=== PATIENT | female | born 1955 | race Caucasian/White ===

== ENCOUNTER 2020-03-31 07:44 | Outpatient (CLI) | payer OTHER, SELFPAY ==
--- NOTE | ~2020-03-31 | MM_ITS ---
EXAMINATION: MM screening [facility] BI w umang HISTORY: Screening mammogram TECHNIQUE: Craniocaudal and mediolateral oblique 3-D tomosynthesis images were obtained and synthetic 2-D images were generated. CAD analysis was submitted and interpreted. COMPARISON: 01/05/2017 bilateral complete breast ultrasound 12/27/2016 bilateral digital screening mammogram bilateral digital screening mammogram BREAST PARENCHYMAL COMPOSITION: The breasts are heterogeneously dense, which may obscure small masses . FINDINGS: Again noted is a biopsy marker in the posterior upper mid left breast; history of prior ryan ign left breast biopsy. There is bilateral asymmetry. Additional bilateral diagnostic compression views are recommended.. Indeterminate subtle grouped microcalcifications are noted in the posterior upper inner quadrant of t he left breast. Diagnostic left magnification mammographic views are recommended. 10 mm circumscribed mass is noted centrally in the left breast (MLO Tomosynthesis image 43/77). IMPRESSION: 1. Bilateral asymmetry and left-sided microcalcifications 2. Bilateral diagnostic mammography is recommended BI-RADS Category 0: Incomplete: Needs additional imaging evaluation. Reviewed, dictated and finalized at location A. X FOAM WORKER
--- NOTE | ~2020-03-31 | DEXA_ITS ---
Bone Density Report Name: Janine Mejia Age: 64 Sex: Female Ethnicity: White Date of : 1955 Indication: postmenopausal; height loss; Referring Provider: Alla Bourne Study: Bone densitometry was performed. Exam Date: March 31, 2020 Accession number: [id number] Bone Density: Region BMD T-score Z-score Classification AP Spine (L1-L4) 0.750 -2.7 -1.0 Osteoporosis Femoral Neck (Left) 0.636 -1.9 -0.4 Osteopenia Total Hip (Left) 0.730 -1.7 -0.5 Osteopenia Total Hip Bilateral Avg 0.746 -1.6 -0.4 Osteopenia Femoral Neck (Right) 0.635 -1.9 -0.4 Osteopenia Total Hip (Right) 0.761 -1.5 -0.3 Osteopenia World Health Organization criteria for BMD impression classify patients as: Normal (T-score at or above -1.0), Osteopenia (T-score between -1.0 and -2.5), or Osteoporosis (T-score at or below -2.5). 10-year Fracture Risk: FRAX not reported because: Some T-score for Spine Total or Hip Total or Femoral Neck at or below -2.5 Treated for osteoporosis Clinical Information Provided by Patient: Is being treated for osteoporosis Has used the following medications: Fosamax (i.e. alendronate), Vitamin D Patient maximum height was 64 Menopause Age: 50 Onset of menses at age 15 Number of children 1 Impression: The patient has osteoporosis, based on the Total Spine T-score. Discussion: It is important to ask patients whether they are taking their medications and to encourage continued and appropriate compliance with their osteoporosis therapies to reduce fracture risk. It is also important to review their risk factors and encourage appropriate calcium and vitamin D intakes, exercise, fall prevention and other lifestyle measures. Follow-Up: Consider a repeat BMD and Vertebral Fracture Assessment (VFA) exam in 2 years or sooner if medically necessary, to reassess this patient's status. Reported by: ANTHONY on 03/31/2020 8:16:00 AM. Reviewed, dictated and finalized at location AGina LINDSEY
== END 2020-03-31 07:45 | disposition home or self-care (01) ==
LOC: ANHIMG 07:50
PROVIDERS: PCP Family Medicine; Visit Provider Obstetrics & Gynecology
DX: Z12.31 Encounter for screening mammogram for malignant neoplasm of breast (principal); Z13.820 Encounter for screening for osteoporosis; Z78.0 Asymptomatic menopausal state; R92.8 Other abnormal and inconclusive findings on diagnostic imaging of breast; M81.0 Age-related osteoporosis without current pathological fracture; M85.852 Other specified disorders of bone density and structure, left thigh; M85.851 Other specified disorders of bone density and structure, right thigh
CPT/HCPCS: 77063; 77067; 77080

== ENCOUNTER 2020-05-05 11:21 | Outpatient (CLI) | payer OTHER, SELFPAY ==
--- NOTE | ~2020-05-05 | MM_ITS ---
EXAMINATION: MM diagnostic ty BI w umang HISTORY: Follow-up bilateral calcifications and breast asymmetries. TECHNIQUE: Additional 3-D tomosynthesis images of the breasts were performed and synthetic 2-D images were generated. CAD analysis was submitted and interpreted. COMPARISON: Comparison to multiple prior studies sequentially, with oldest reviewed study dated 06/22. BREAST PARENCHYMAL COMPOSITION: The breasts are heterogenously dense, which may obscure small masses. FINDINGS: There are nonspecific bilateral clustered calcifications upper aspect of the both breasts. There are bilateral breast asymmetries which are persistent, although no discrete mass or architectur al distortion is identified. IMPRESSION: 1. Bilateral breast asymmetries obscured by dense fibroglandular tissue. Bilateral complete breast ul trasound recommended. 2. Bilateral clustered nonspecific calcifications are likely benign. Six-month follow-up diagnostic b ilateral mammogram recommended. BI-RADS Category 0: Incomplete: Needs additional imaging evaluation. Reviewed, dictated and finalized at location A. ICAL ADMINISTRATIVE ASSISTANT IMPRESSION: 1. Bilateral breast asymmetries obscured by dense fibroglandular tissue. Bilate ral complete breast ultrasound recommended. 2. Bilateral clustered nonspecific calcifications are likely benign. Six-month follow-up diagnostic bilateral mammogram recommended. BI-RADS Category 0: Incomplete: Needs additional imaging evaluation.
--- NOTE | ~2020-05-05 | US_ITS ---
US breast BI complete 05/05/2020 12:46 Indication: Follow-up bilateral breast asymmetries Procedure: High-resolution complete bilateral breast ultrasound Comparison: 01/05/2017 Findings: There are multiple simple and complicated cysts of both breasts. There are no suspicious va scular masses in either breast. At 9:00, 2 cm from the nipple there are small hypoechoic masses adjac ent to one another measuring up to 4 mm, likely benign. At 4:00, 4 cm from the nipple there is a oval hypoechoic mass measuring 6 mm which is unchanged from prior study, consistent with a benign mass, likely complicated cyst or fibroadenoma. At 11:00, 1 cm f rom the nipple there is a stable hypoechoic mass measuring 1 cm maximum dimension, slightly decreased in size compared with prior examination allowing for technique, likely benign. Impression: 1: Probable benign left breast masses. BI-RADS CATEGORY 3-PROBABLY BENIGN FINDING RECOMMENDATION: Six-month follow-up diagnostic bilateral mammogram and left breast ultrasound recomme nded. Reviewed, dictated and finalized at location A. HOUSE LOGISTICS MANAGER Impression: 1: Probable benign left breast masses. BI-RADS CATEGORY 3-PROBABLY BENIGN FINDING RECOMMENDATION: Six-month follow-up diagnostic bilateral mammogram and left stacie ast ultrasound recommended.
== END 2020-05-05 11:22 | disposition home or self-care (01) ==
LOC: ANHIMG 11:23
PROVIDERS: PCP Physician Assistant; Visit Provider Obstetrics & Gynecology
DX: R92.8 Other abnormal and inconclusive findings on diagnostic imaging of breast (principal)
CPT/HCPCS: 76641; 77062; 77066; G0279

== ENCOUNTER → 2021-04-13 07:52 | Outpatient (CLI) | payer OTHER, SELFPAY ==
--- NOTE | ~2021-04-13 | MMUS_ITS ---
EXAMINATION: MM diagnostic ty BI w umang, US breast LT complete HISTORY: Overdue follow-up for probably benign bilateral breast calcifications and left breast masses TECHNIQUE: Craniocaudal, mediolateral, and mediolateral oblique 3-D tomosynthesis images of the dalial ts were performed and synthetic 2-D images were generated. CAD analysis was submitted and interpreted . High resolution limited left breast ultrasound was performed. COMPARISON: 05/05/2020, 03/31/2020, 12/27/2016 BREAST PARENCHYMAL COMPOSITION: The breasts are extremely dense, which lowers the sensitivity of mamm ography. FINDINGS: MAMMOGRAPHIC FINDINGS: Left breast: There is a stable 10 mm obscured low density mass middle third of the inner breast at th e 9:00 location 4.5 cm from the nipple. There are also stable appearing calcifications of the posteri or third of the inner breast. Right breast: Grouped calcifications in the posterior third upper outer quadrant of the breast appear stable and somewhat dystrophic in morphology. ULTRASOUND: An 8 mm round, circumscribed, hypoechoic mass with no posterior features or internal vascularity at t he 12:00 location 2 cm from the nipple demonstrates slight decrease in size. A 3 mm mass with similar sonographic features at the 1:00 location 4 cm from the nipple is stable. IMPRESSION: 1. Bilateral breast calcifications and sonographically detected left breast mass at the 1:00 location without significant change since the prior examination. 2. Given one year of interval stability, recommend 12 month followup bilateral diagnostic mammogram a nd left breast ultrasound. BI-RADS category 3, probably benign findings. Reviewed, dictated and finalized at location A. UTATOR OPERATOR IMPRESSION: 1. Bilateral breast calcifications and sonographically detected left breast mas s at the 1:00 location without significant change since the prior examination. 2. Given one year of interval stability, recommend 12 month followup bilateral diagnostic mammogram and left breast ultrasound. BI-RADS category 3, probably benign findings.
== END ==
PROVIDERS: PCP Physician Assistant; Visit Provider Obstetrics & Gynecology
DX: R92.8 Other abnormal and inconclusive findings on diagnostic imaging of breast (principal)
CPT/HCPCS: 76641; 77062; 77066; G0279

== ENCOUNTER 2022-01-12 14:51 | Outpatient (CLI) | payer OTHER, SELFPAY ==
[2022-01-12 15:22] LABS: Appearance Urine Clear (Clear); Bilirubin Urine Negative (Negative); Blood Urine Trace-intact (Negative); Color Urine Yellow (Yellow); Glucose Urine UA Negative (Negative); Ketones Urine Negative (Negative); Leukocyte Esterase Ur 2+ LEU/UL (NEGATIVE); Nitrate Urine Negative (Negative); Protein Urine Negative (Negative); Specific Grav Ur 1.015 (1.001-1.035); Urobilinogen Urine 0.2 mg/dL (<2.0)
[2022-01-12 15:26] LABS: Bacteria Urine Trace /hpf; Mucus Urine Rare /lpf; Squamous Epithelial Cell Urine Rare /hpf (Few)
[2022-01-12 15:35] LABS: Add Urine Microscopic? YES
== END 2022-01-12 14:52 | disposition home or self-care (01) ==
PROVIDERS: PCP Physician Assistant; Visit Provider Physician Assistant
DX: R10.9 Unspecified abdominal pain (principal)
CPT/HCPCS: 81001; 87086

== ENCOUNTER → 2022-05-31 07:40 | Outpatient (CLI) | payer OTHER, SELFPAY ==
--- NOTE | ~2022-05-31 | MMUS_ITS ---
EXAMINATION: MM diagnostic ty BI w umang, US breast BI complete HISTORY: 12 month follow-up of bilateral breast calcifications and sonographically detected left 1:00 breast mass TECHNIQUE: ML, MLO and CC 3-D tomosynthesis images of both breasts were performed and synthetic 2-D i mages were generated. Magnification views of both breasts. CAD analysis was submitted and interpreted . High resolution complete bilateral breast ultrasound examination including all 4 quadrants and suba reolar areas was performed. COMPARISON: 04/13/2021 bilateral diagnostic mammogram and complete left breast ultrasound examination 05/05/2020 bilateral diagnostic mammogram and complete bilateral breast ultrasound examination BREAST PARENCHYMAL COMPOSITION: The breasts are heterogeneously dense, which may obscure small masses . FINDINGS: MAMMOGRAPHIC FINDINGS: There is a biopsy marker on the left. History of prior benign left breast biopsy. There is a circumscribed 9 mm mass in the inner aspect of the upper inner quadrant of the left breast approximately 4.2 cm deep to the nipple The heterogeneously dense stroma may obscure additional masses. Occasional bilateral benign calcifications are noted. No architectural distortion, skin thickening or retraction is detected. ULTRASOUND: Right breast: 2:00 subareolar area: 3 x 2.2 mm circumscribed hypoechoic lesion without internal vascularity or post erior shadowing 8:00 4 cm from nipple: There is a small focal area of shadowing without discrete mass; ultrasound-nancy ded biopsy should be considered 10:00 5 cm from nipple: 3.2 x 4.3 mm circumscribed hypoechoic area without internal vascularity or po sterior shadowing Left breast: 12:00 subareolar area: There is a non circumscribed approximately 6 x 9 x 7 mm hypoechoic area with p osterior shadowing. Ultrasound-guided biopsy is recommended. IMPRESSION: 1. Left breast 12:00 non circumscribed approximately 9 mm hypoechoic area with posterior shadowing; u ltrasound-guided biopsy is recommended 2. Right breast 8:00 focal shadowing; ultrasound-guided biopsy should be considered BI-RADS category 4, suspicious findings. Dr. Muhammad telephoned the report and ultrasound guided biopsy recommendations on May 31, 2022 at 0 945 hours to Cata Machine Fastener. Reviewed, dictated and finalized at location A. SIT BUS DRIVER IMPRESSION: 1. Left breast 12:00 non circumscribed approximately 9 mm hypoechoic area with posterior shadowing; ultrasound-guided biopsy is recommended 2. Right breast 8:00 focal shadowing; ultrasound-guided biopsy should be consid ered BI-RADS category 4, suspicious findings. Dr. Muhammad telephoned the report and ultrasound guided biopsy recommendations on May 31, 2022 at 0945 hours to Mora Ivy.
== END ==
PROVIDERS: PCP Physician Assistant; Visit Provider Obstetrics & Gynecology
DX: N63.20 Unspecified lump in the left breast, unspecified quadrant (principal); R92.8 Other abnormal and inconclusive findings on diagnostic imaging of breast
CPT/HCPCS: 76641; 77062; 77066; G0279

== ENCOUNTER 2023-10-17 11:17 | Outpatient (CLI) | payer OTHER, SELFPAY ==
--- NOTE | ~2023-10-17 | MM_ITS ---
EXAMINATION: MM screening ty BI w umang HISTORY: Screening TECHNIQUE: Craniocaudal and mediolateral oblique 3-D tomosynthesis images were obtained and synthetic 2-D images were generated. CAD analysis was submitted and interpreted. COMPARISON: Comparison to multiple prior studies sequentially, with oldest reviewed study dated 07/29. BREAST PARENCHYMAL COMPOSITION: Dense: The breasts are heterogeneously dense, which may obscure small masses FINDINGS: There are asymmetries centered in the upper outer quadrant of the left breast with associat ed tissue markers. The right breast is stable without evidence for malignancy. IMPRESSION: 1. Left breast asymmetries, upper outer quadrant. 2. Additional mammographic views and possible breast ultrasound are recommended. BI-RADS Category 0: Incomplete: Needs additional imaging evaluation. Reviewed, dictated and finalized at location B. IMPRESSION: 1. Left breast asymmetries, upper outer quadrant. 2. Additional mammographic views and possible breast ultrasound are recommended . BI-RADS Category 0: Incomplete: Needs additional imaging evaluation.
== END 2023-10-17 11:18 ==
LOC: MICIMG 11:18
PROVIDERS: PCP Physician Assistant; Visit Provider Obstetrics & Gynecology
DX: Z12.31 Encounter for screening mammogram for malignant neoplasm of breast (principal); R92.8 Other abnormal and inconclusive findings on diagnostic imaging of breast
CPT/HCPCS: 77063; 77067

== ENCOUNTER 2023-11-15 08:20 | Emergency (ER) | payer OTHER, SELFPAY ==
--- NOTE | 2023-11-15 08:33 | ED.EAR ---
HPI - Ear Problem General Chief complaint: Ear Stated complaint: RT Ear Pain Time Seen by Provider: 11/15/23 08:46 Source: patient Mode of arrival: ambulatory Limitations: no limitations History of Present Illness HPI Narrative: 68-year-old female presented for complaint of right ear pain for 3 days. Pain is described as sharp and throbbing, improves with ibuprofen. Worse at bedtime when laying down. Denies decreased hearing, ear drainage, dizziness, tinnitus, nausea vomiting, nasal congestion, fevers or chills. MD Complaint: ear pain Related Data Home Medications Medication Instructions Recorded Confirmed aspirin 81 mg tablet,delayed 81 mg PO DAILY 04/21/20 11/15/23 release (Adult Aspirin Regimen) calcium carbonate 600 mg PO DAILY 04/21/20 11/15/23 cholecalciferol (vitamin D3) 25 25 mcg PO DAILY 04/27/21 11/15/23 mcg (1,000 unit) capsule vitamin E (dl, acetate) 180 mg 180 mg PO DAILY 04/27/21 11/15/23 (400 unit) capsule Allergies Allergy/AdvReac Type Severity Reaction Status Date / Time No Known Allergies Allergy Verified 05/23/23 09:20 Review of Systems Review of Systems: CONSTITUTIONAL: Denies malaise, chills, or fever. EYES: Denies visual changes, redness, or discharge. ENT: Denies rhinorrhea, congestion, sinus pain, and sore throat. Reports ear pain CARDIOVASCULAR: Denies chest pain, palpitations, or edema. RESPIRATORY: Denies cough or dyspnea. GASTROINTESTINAL: Denies abdominal pain, nausea, vomiting, diarrhea SKIN: Denies rash or itching. MUSCULOSKELETAL: Denies myalgia. NEUROLOGIC: Denies headache. All systems reviewed & are unremarkable except as noted in HPI and below PMFSH Past Medical History Medical History Abnormal breast biopsy Cataract (lens) fragments in eye following cataract surgery, right eye High cholesterol Left breast mass Spontaneous Tubal Surgical History Surgical History H/O breast biopsy (07/12/22) left breast biopsy Benign History of gynecologic surgery d&c - miscarriage History of gynecologic surgery endometria [id number]-P&C-benign History of tubal ligation Family History Family History Father Heart disease Mother Aneurysm of gastric artery Diabetes mellitus Heart disease Sibling Heart disease Social History Social History Smoking status: Never smoker Alcohol intake: never Substance use: never Substance use type: does not use Lack of Transportation: No Lack of Food: Never True Current Housing: I Have Housing Concerned About Future Housing: No Difficulty Paying Gas/Electric Bills: No Difficulty Paying for Meds: No Currently Unemployed: No Education: High School Diploma/GED Difficulty w/ Childcare or Family Care: No Living arrangements: other Additional living arrangements comments: Occupation/Education: occupation 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 There is no relevant family history pertinent to the presenting complaint Exam Narrative: GENERAL: Well-appearing ENT: Nares clear. Mucous membranes moist. TMs pearly schumacher with dull light reflex bilaterally, right TM with cloudy effusion; canal not erythematous, no drainage; no tragal tenderness. Oropharynx not erythematous without lesions. NECK: Supple. No lymphadenopathy CHEST: Clear to auscultation, breath sounds equal. No wheezing, rhonchi, rales, or stridor. No respiratory distress, speaks in full sentences. HEAR
[2023-11-15 08:41] VITALS: BP 124/50; PULSE 61; RESP 16; TEMP 36.7; O2SAT 99
[2023-11-15 08:45] VITALS: BP 124/50; PULSE 61; RESP 16; TEMP 36.7; O2SAT 99
== END 2023-11-15 08:58 | disposition home or self-care (01) ==
PROVIDERS: Emergency Provider Nurse Practitioner Family; PCP Internal Medicine
DX: H66.91 Otitis media, unspecified, right ear (principal); E78.00 Pure hypercholesterolemia, unspecified; Z79.82 Long term (current) use of aspirin
CPT/HCPCS: 99213; G0463

== ENCOUNTER 2024-04-10 07:55 | Outpatient (CLI) | payer OTHER, SELFPAY ==
--- NOTE | ~2024-04-10 | DEXA_ITS ---
Bone Density Report Name: ABE CHÁVEZ Age: 68 Sex: Female Ethnicity: White Date of : 1955 Indication: postmenopausal; screening for osteoporosis; height loss; Referring Provider: LAINA ARNOLD Study: Bone densitometry was performed. Exam Date: April 10, 2024 Accession number: [id number] Bone Density: Region BMD T-score Z-score Classification AP Spine(L1-L4) 0.844 -1.8 0.2 Osteopenia Femoral Neck (Left) 0.625 -2.0 -0.3 Osteopenia Total Hip (Left) 0.815 -1.0 0.4 Normal Femoral Neck (Right) 0.687 -1.5 0.3 Osteopenia Total Hip (Right) 0.816 -1.0 0.4 Normal Total Hip Mean 0.815 -1.0 0.4 Normal World Health Organization criteria for BMD impression classify patients as: Normal (T-score at or above -1.0), Osteopenia (T-score between -1.0 and -2.5), or Osteoporosis (T-score at or below -2.5). 10-year Fracture Risk: FRAX not reported because: Treated for osteoporosis Clinical Information Provided by Patient: Is being treated for osteoporosis Has used the following medications: Boniva (i.e. ibandronate), Vitamin D, Calcium Patient maximum height was 63 Menopause Age: 50 No regular weight bearing exercise Drinks caffeinated beverages Onset of menses at age 14 Number of children 1 Impression: The patient has low bone mass, based on the Left Femoral Neck T-score. Discussion: It is important to ask patients whether they are taking their medications and to encourage continued and appropriate compliance with their osteoporosis therapies to reduce fracture risk. It is also important to review their risk factors and encourage appropriate calcium and vitamin D intakes, exercise, fall prevention and other lifestyle measures. Follow-Up: Consider a repeat BMD and Vertebral Fracture Assessment (VFA) exam in 2 years or sooner if medically necessary, to reassess this patient's status. Reported by: JACQUI on 04/10/2024 8:28:00 AM. Reviewed, dictated and finalized at location AGina LINDSEY
== END 2024-04-10 07:56 | disposition home or self-care (01) ==
LOC: ANHIMG 07:59
PROVIDERS: PCP Internal Medicine; Visit Provider Obstetrics & Gynecology
DX: M81.0 Age-related osteoporosis without current pathological fracture (principal); M85.89 Other specified disorders of bone density and structure, multiple sites; Z13.820 Encounter for screening for osteoporosis
CPT/HCPCS: 77080

== ENCOUNTER 2024-04-23 07:41 | Outpatient (CLI) | payer BC, SELFPAY ==
--- NOTE | ~2024-04-23 | MM_ITS ---
EXAMINATION: MM diagnostic ty LT w umang HISTORY: Six-month follow-up left breast, prior biopsy TECHNIQUE: 3-D tomosynthesis images of the left breast were performed and synthetic 2-D images were g enerated. CAD analysis was submitted and interpreted. COMPARISON: 10/17/2023, 01/03/2023, 07/12/2022 BREAST PARENCHYMAL COMPOSITION:Dense: The breasts are heterogeneously dense, which may obscure small masses. FINDINGS: Parenchymal pattern of the left breast is unchanged. Stable biopsy markers. Stable central left breast masses. No new mass or new distortion evident. No suspicious microcalcification. IMPRESSION: No mammographic evidence for malignancy. Stable examination as compared to prior exam. BI-RADS Category 2: Benign finding(s). Reviewed, dictated and finalized at location . NG MACHINE OPERATOR IMPRESSION: No mammographic evidence for malignancy. Stable examination as compared to prio r exam. BI-RADS Category 2: Benign finding(s).
== END 2024-04-23 07:42 | disposition home or self-care (01) ==
PROVIDERS: PCP Physician Assistant; Visit Provider Obstetrics & Gynecology
DX: N64.89 Other specified disorders of breast (principal)
CPT/HCPCS: 77061; 77065; G0279

== ENCOUNTER 2024-11-13 14:36 | Emergency (ER) | payer BC, SELFPAY ==
--- OUTSIDE RECORDS SUMMARY | 2024-11-13 14:40 | XMS_ITS | Clinical Summary ---
Author Organization [facility] Address [address] [place] [address] Care Team Providers Care Chip Applying Machine Tender Name Role Phone Stanton Mcdonough MD Unavailable [phone] Bob Vance Primary Care Provider Allergies No known active allergies Medications ibandronate (BONIVA) 150 mg tablet TAKE 1 TABLET BY MOUTH ONCE EVERY MONTH 04/13/2022 Active rosuvastatin (CRESTOR) 10 mg tablet Take 1 tablet (10 mg total) by mouth daily 05/01/2022 Active aspirin 81 mg enteric coated tablet Take 1 tablet (81 mg total) by mouth daily Active vitamin E 400 unit capsule Take 1 capsule (400 Units total) by mouth Active calcium carbonate-vit D3-min 600 mg calcium- 200 unit tablet Take by mouth Active Active Problems Patient Care Coordination No te Formatting of this note migh t be different from the original. Pinky Problem Noted Date Diagnosed Date Mass of left breast 01/03/2023 Mass of right breast 06/28/2010 Surgical History Surgery Date Site/Laterality Comments BREAST BIOPSY BREAST BIOPSY 07/12/2022 Left Family History Medical History Relation Name Comments No Known Problems Mother Relation Name Status Comments Mother Social History Tobacco Use Types Packs/Day Years Used Date Smoking Tobacco: Never Passive Smoke Exposure: Never Smokeless Tobacco: Never Tobacco Cessation:Counseling Given: Not Answered Personal Safety Answer Date Recorded Getting School Help Needed Not on file 05/23 Comments Unknown Sex and Gender Information Value Date Recorded Sex Assigned at Not on file Legal Sex 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 Gender Identity Not on file Sexual Orientation Not on file Obstetrics History Last Filed Vital Signs Vital Sign Reading Time Taken Comments Blood Pressure - - Pulse - - Temperature - - Respiratory Rate - - Oxygen Saturation - - Inhaled Oxygen Concentration - - Weight 68 kg (150 lb) 01/03/2023 8:17 AM CDT Height 162.6 cm (5' 4) 01/03/2023 8:17 AM CDT Body Mass Index 25.75 01/03/2023 8:17 AM CDT Plan of Treatment Health Maintenance Due Date Last Done Comments Colon Cancer Screening-Colonoscopy 1955 Depression Screening 1955 Fall Risk Assessment 1955 Hepatitis C Screening 1955 Osteoporosis Screening-Bone Density Scan 1955 DTaP/Tdap/Td Vaccine (1 - Tdap) 1966 Hepatitis B Screening 1973 Pneumococcal vaccine 65+ (1 of 1 - PCV) 2005 Zoster Vaccine (1 of 2) 2005 Well Visit 65+ 2020 Breast Cancer Screening-Mammogram 06/24/2023 023 Covid-19 Vaccine (5 - 2023-2 5 season) 2023 04/29/2021, 09/22/2020, 08/12/2020, Additional history exists Influenza Vaccine (#1) 2024 Procedures Procedure Name Priority Date/Time Associated Diagnosis Comments DIAGNOSTIC MAMMOGRAM BILATERAL W CHARLEY Schedule Routine, Read Routine (OP Routine) 06/23/2022 12:16 PM CDT Mass of breast, unspecified laterality from Last 3 Months or Most Recently Relevant to Health Maintenance Results * Diagnostic Mammogram Bilateral W Charley (06/23/2022 12:16 PM CDT) Anatomical Region Laterality Modality Breast Bilateral Mammography 06/23/2022 2:42 PM CDT Impressions 06/23/2022 2:42 PM CDT 1. Right upper outer small grouping of probably benign calcifications, which are fairly stable to 04/2020 MLO. Recommend right diagnostic mammogram in 6 months to confirm stability. 2. Right lower inner breast shows stable benign changes at mammography. Repeat imaging of the 8:00 area of vague shadowing at ultrasound shows no discrete mass for biopsy. This area can also be followed with repeat mammography. 3. Left slightly outer posterior area of architectural distortion at mammography. Ultrasound may shows a vague correlate at 5:00, however mammography gives best visualization for biopsy (CC view). Of note the nearby more anterolateral asymmetry seen on recent mammogram does appear to efface. 4. Left 11:00 9 mm round mass at mammography is stable to 2020. This correlates to the ultrasound left 11:00 to 12:00 small round mass. No biopsy is required. OVERALL FINAL ASSESSMENT: SUSPICIOUS. BI-RADS Category 4B: Moderate suspicion for malignancy. RECOMMENDATION: Stereotactic biopsy of LEFT slightly outer posterior area of architectural distortion. Recommend RIGHT diagnostic mammogram in 6 months to reassess probably benign calcifications. Dr. Back discussed the above findings and recommendations with the patient. She has been scheduled to return to the [facility] for biopsy on 07/12 at 7:45 AM. This facility will contact the referring clinician's office for an order. Electronically signed by: MD Glynn Worrell 06/23/2022 2:42 PM CDT EXAMINATION: BILATERAL DIGITAL DIAGNOSTIC MAMMOGRAM INCLUDING CAD AND BILATERAL DIGITAL BREAST TOMOSYNTHESIS; BILATERAL BREAST SONOGRAM HISTORY: 67 female who presents after outside consultation for bilateral multiple BiRads 3 and 4 findings on recent 06/03 mammography and ultrasound. COMPARISON: Outside mammography 05/31/2022, 04/13/2022, 05/05/2020, 05/01/2019; ultrasound bilateral breast 05/05/2020 and 04/13/2021 TECHNIQUE: Full field digital mammographic views of BOTH breasts were performed, including computer aided detection (CAD) and BILATERAL digital breast tomosynthesis (DBT). Directed ultrasound evaluation of BOTH breasts was performed by a trained statistical methods teacher and by Wong. BREAST PARENCHYMAL COMPOSITION: The breasts are heterogenously dense, which may obscure small masses. MAMMOGRAM FINDINGS: In the right upper outer breast at posterior depth / 5 cm from nipple, there is a small grouping of coarse heterogeneous and round calcifications. These do appear fairly stable in the upper posterior breast, compared to the 04/2020 MLO (harder to pull in on CC). No associated mass or asymmetry is seen. Stable benign changes are seen in the right lower inner breast in the area of indeterminate 8:00 shadowing at ultrasound. In the left 11:00 breast, 2 cm from nipple, there is a stable smoothly marginated 1 cm oval mass, compared to 03/2020. This correlates to the left 12:00 subareolar 9 mm round mass, which biopsy has been requested. In the left outer breast at posterior depth on recent 05/2022 mammogram, the asymmetry on CT does appear to efface. However better imaged today, deep to this in the left slightly outer posterior breast on spot CC, there is an area of architectural distortion seen. This may be faintly visualized in the central to slightly lower breast on the MLO spot. SONOGRAM FINDINGS: Repeat imaging of the right 8:00 breast, 4 cm from nipple shows nonspecific scattered dense breast tissue. No focal mass or target for biopsy is present. In the left 11:00 breast, 2 cm from nipple at posterior depth, the 9 x 8 x 7 mm smooth marginated hypoechoic oval mass appears similar to the recent 04/2021 ultrasound (labeled as 12:00/2 cm). No abnormal color flow is seen. This is felt to correlate to the stable round mass seen on mammography dating back to 2019. In the left 2:00 to 5:00 breast, in region of the left slightly outer posterior architectural distortion at mammography, no discrete definite mass is seen. There is a more focal hypoechoic area at 5:00, 3 cm from nipple, however this area is not well enough seen to target for biopsy. Procedure Note Lindsey Back MD - 06/23/2022 EXAMINATION: BILATERAL DIGITAL DIAGNOSTIC MAMMOGRAM INCLUDING CAD AND BILATERAL DIGITAL BREAST TOMOSYNTHESIS; BILATERAL BREAST SONOGRAM HISTORY: 67 female who presents after outside consultation for bilateral multiple BiRads 3 and 4 findings on recent 06/03 mammography and ultrasound. COMPARISON: Outside mammography 05/31/2022, 04/13/2022, 05/05/2020, 05/01/2019; ultrasound bilateral breast 05/05/2020 and 04/13/2021 TECHNIQUE: Full field digital mammographic views of BOTH breasts were performed, including computer aided detection (CAD) and BILATERAL digital breast tomosynthesis (DBT). Directed ultrasound evaluation of BOTH breasts was performed by a trained statistical methods teacher and by Wong. BREAST PARENCHYMAL COMPOSITION: The breasts are heterogenously dense, which may obscure small masses. MAMMOGRAM FINDINGS: In the right upper outer breast at posterior depth / 5 cm from nipple, there is a small grouping of coarse heterogeneous and round calcifications. These do appear fairly stable in the upper posterior breast, compared to the 04/2020 MLO (harder to pull in on CC). No associated mass or asymmetry is seen. Stable benign changes are seen in the right lower inner breast in the area of indeterminate 8:00 shadowing at ultrasound. In the left 11:00 breast, 2 cm from nipple, there is a stable smoothly marginated 1 cm oval mass, compared to 03/2020. This correlates to the left 12:00 subareolar 9 mm round mass, which biopsy has been requested. In the left outer breast at posterior depth on recent 05/2022 mammogram, the asymmetry on CT does appear to efface. However better imaged today, deep to this in the left slightly outer posterior breast on spot CC, there is an area of architectural distortion seen. This may be faintly visualized in the central to slightly lower breast on the MLO spot. SONOGRAM FINDINGS: Repeat imaging of the right 8:00 breast, 4 cm from nipple shows nonspecific scattered dense breast tissue. No focal mass or target for biopsy is present. In the left 11:00 breast, 2 cm from nipple at posterior depth, the 9 x 8 x 7 mm smooth marginated hypoechoic oval mass appears similar to the recent 04/2021 ultrasound (labeled as 12:00/2 cm). No abnormal color flow is seen. This is felt to correlate to the stable round mass seen on mammography dating back to 2019. In the left 2:00 to 5:00 breast, in region of the left slightly outer posterior architectural distortion at mammography, no discrete definite mass is seen. There is a more focal hypoechoic area at 5:00, 3 cm from nipple, however this area is not well enough seen to target for biopsy. IMPRESSION: 1. Right upper outer small grouping of probably benign calcifications, which are fairly stable to 04/2020 MLO. Recommend right diagnostic mammogram in 6 months to confirm stability. 2. Right lower inner breast shows stable benign changes at mammography. Repeat imaging of the 8:00 area of vague shadowing at ultrasound shows no discrete mass for biopsy. This area can also be followed with repeat mammography. 3. Left slightly outer posterior area of architectural distortion at mammography. Ultrasound may shows a vague correlate at 5:00, however mammography gives best visualization for biopsy (CC view). Of note the nearby more anterolateral asymmetry seen on recent mammogram does appear to efface. 4. Left 11:00 9 mm round mass at mammography is stable to 2020. This correlates to the ultrasound left 11:00 to 12:00 small round mass. No biopsy is required. OVERALL FINAL ASSESSMENT: SUSPICIOUS. BI-RADS Category 4B: Moderate suspicion for malignancy. RECOMMENDATION: Stereotactic biopsy of LEFT slightly outer posterior area of architectural distortion. Recommend RIGHT diagnostic mammogram in 6 months to reassess probably benign calcifications. Dr. Back discussed the above findings and recommendations with the patient. She has been scheduled to return to the [facility] for biopsy on 07/12 at 7:45 AM. This facility will contact the referring clinician's office for an order. Electronically signed by: Lindsey Back MD Yvette Joshi NP IMG MAMMO PROCEDURES Final Result from Last 3 Months or Most Recently Relevant to Health Maintenance Insurance [employer] PLUS MEDICARE Care Teams Chip Applying Machine Tender Relationship Specialty Start Date End Date Bob Vance PA [address] [place] [address] PCP - General Physician Skidway Man 06/07/22 Stanton Mcdonough MD [address] [place] [address] Referring Physician Obstetrics and Gynecology 05/31/22
--- OUTSIDE RECORDS SUMMARY | 2024-11-13 14:40 | XMS_ITS | Encounter Summary ---
Author Organization [facility] Healthcare Address [address] [place] [address] Care Team Providers Care Employment Interviewer Name Role Phone Unavailable Primary Care Provider Unavailabl e Reason for Visit * Diagnostic Imaging (Routine) - Closed Specialty Diagnoses / Procedures Referred By Jamil t Referred To Contact Procedures Breast Imaging US Outside Reference Yvette Joshi NP Phone: tel: fax: Referral ID Status Reason Start Date Expiration Date Visits Re quested Visits Authorized [id number] Closed 06/18/2022 07/18/2023 1 1 Encounter Details Date Type Department Care Team (Late st Contact Info) Description 05/05/2020 Hospital Encounter [facility] [address] [place] [id number] Social History Tobacco Use Types Packs/Day Years Used Date Smoking Tobacco: Never Passive Smoke Exposure: Never Smokeless Tobacco: Never Personal Safety Answer Date Recorded Getting School Help Needed Not on file 05/23 Comments Unknown Sex and Gender Information Value Date Recorded Sex Assigned at Not on file 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 There will be no report generated by a [facility] Radiologist. Narrative RAD_MAMMO_[facility] - 06/18/2022 1:07 PM PRINT INSPECTOR EXAMINATION: Images For Reference Purposes Only us Yvette Joshi NP IMG MAMMO PROCEDURES Final Result [facility]MAMMO[facility] documented in this encounter Visit Diagnoses Not on filedocumented in this encounter
--- OUTSIDE RECORDS SUMMARY | 2024-11-13 14:40 | XMS_ITS | Encounter Summary ---
Author Organization [facility] Healthcare Address [address] [place] [address] Care Team Providers Care Chairlift Operator Name Role Phone Unavailable Primary Care Provider Unavailabl e Reason for Visit * Diagnostic Imaging (Routine) - Closed Specialty Diagnoses / Procedures Referred By Jamil t Referred To Contact Procedures Breast Imaging Diagnostic Outside Reference Yvette Joshi NP Phone: tel: fax: Referral ID Status Reason Start Date Expiration Date Visits Re quested Visits Authorized [id number] Closed 06/18/2022 07/18/2023 1 1 Encounter Details Date Type Department Care Team (Late st Contact Info) Description 05/05/2020 12:05 AM POWER 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 Hospital Encounter [facility] [address] [place] [id number] Social History Tobacco Use Types Packs/Day Years Used Date Smoking Tobacco: Never Passive Smoke Exposure: Never Smokeless Tobacco: Never Personal Safety Answer Date Recorded Getting School Help Needed Not on file 05/23 Comments Unknown Sex and Gender Information Value Date Recorded Sex Assigned at Not on file Legal Sex Female 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 Gender Identity Not on file Sexual Orientation Not on file documented as of this encounter Plan of Treatment Not on file documented as of this encounter Procedures Procedure Name Priority Date/Time Associated Diagnosis Comments BREAST IMAGING MG DIAGNOSTIC OUTSIDE REFERENCE Routine 05/05/2020 12:05 AM POWER 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 documented in this encounter Results * Breast Imaging Diagnostic Outside Reference (05/05/2020 12:05 AM POWER 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) Impressions [facility]_MAMMO[facility] - 06/18/2022 1:07 PM POWER 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 These images are for Reference purposes only and have not been reviewed by [facility]. There will be no report generated by a [facility] Radiologist. Narrative [facility]_MAMMO[facility] - 06/18/2022 1:07 PM POWER 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 EXAMINATION: Images For Reference Purposes Only us Yvette Joshi NP IMG MAMMO PROCEDURES Final Result [facility]_MAMMO[facility] documented in this encounter Visit Diagnoses Not on filedocumented in this encounter
--- OUTSIDE RECORDS SUMMARY | 2024-11-13 14:40 | XMS_ITS | Referral Summary ---
Author Organization [facility] Address [address] [place] [address] Care Team Providers Care Coffee Grower Name Role Phone Stanton Mcdonough MD Unavailable [phone] Bob Vance Primary Care Provider Allergies No [...] breast 01/03/2023 Mass of right breast 06/28/2010 Social History Tobacco Use Types Packs/Day Years Used Date Smoking Tobacco: Never Passive Smoke Exposure: Never Smokeless Tobacco: Never Tobacco Cessation:Counseling Given: Not Answered Personal Safety Answer Date Recorded Getting School Help Needed Not on file 05/23 Comments Unknown Sex and Gender Information Value Date Recorded Sex Assigned at Not on file 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 This correlates to the ultrasound left 11:00 [...] been scheduled to return to the [facility] for biopsy on 07/12 at [...] BOTH breasts was performed by a trained packaging mechanic and by Wong. BREAST PARENCHYMAL COMPOSITION: The [...] BOTH breasts was performed by a trained packaging mechanic and by Wong. BREAST PARENCHYMAL COMPOSITION: The [...] round mass at mammography is stable to 2019. This correlates to the ultrasound left 11:00 [...] [facility] 07/12 at 7:45 AM. This facility will contact the referring clinician's office for an order. Electronically signed by: Lindsey Back MD Yvette Joshi NP IMG MAMMO PROCEDURES Final Result from Last 3 Months or Most Recently Relevant to Health Maintenance Insurance [facility] PLUS MEDICARE Care Teams Coffee Grower Relationship Specialty Start Date End Date Bob Vance PA [address] [address] PCP - General Physician Home Insurance Agent 06/07/22 Stanton Mcdonough MD [address] [place] [address] Referring Physician Obstetrics and Gynecology 05/31/22
--- OUTSIDE RECORDS SUMMARY | 2024-11-13 14:41 | XMS_ITS | Encounter Summary ---
Author Organization [facility] Healthcare Address [address] [place] [address] Care Team Providers Care Vp Corporate Partnerships Name Role Phone Unavailable Primary Care Provider Unavailabl e Reason for Visit * Diagnostic Imaging (Routine) - Closed Specialty Diagnoses / Procedures Referred By Jamil t Referred To Contact Procedures Breast Imaging Screening Outside Reference Yvette Joshi NP Phone: tel: fax: Referral ID Status Reason Start Date Expiration Date Visits Re quested Visits Authorized [id number] Closed 06/18/2022 07/18/2023 1 1 Encounter Details Date Type Department Care Team (Late st Contact Info) Description 03/31/2020 Hospital Encounter [facility] Radiology [facility] [address] [place] [id number] Social History Tobacco Use Types Packs/Day Years Used Date Smoking Tobacco: Never Passive Smoke Exposure: Never Smokeless Tobacco: Never Personal Safety Answer Date Recorded Getting School Help Needed Not on file 05/23 Comments Unknown Sex and Gender Information Value Date Recorded Sex Assigned at Not on file Legal Sex Female 9:00 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 Gender Identity Not on file Sexual Orientation Not on file documented as of this encounter Plan of Treatment Not on file documented as of this encounter Procedures Procedure Name Priority Date/Time Associated Diagnosis Comments BREAST IMAGING MG SCREENING OUTSIDE REFERENCE Routine 03/31/2020 12:00 AM CAUSE ANALYST documented in this encounter Results * Breast Imaging Screening Outside Reference (03/31/2020 12:00 AM CAUSE ANALYST) Impressions RAD_MAMMO[facility] - 06/18/2022 1:07 PM CAUSE ANALYST These images are for Reference purposes only and have not been reviewed by [facility] Radiology. There will be no report generated by a [facility] Radiologist. Narrative [facility]_MAMMO[facility] - 06/18/2022 1:07 PM CAUSE ANALYST EXAMINATION: Images For Reference Purposes Only us Yvette Joshi NP IMG MAMMO PROCEDURES Final Result [facility] documented in this encounter Visit Diagnoses Not on filedocumented in this encounter
--- NOTE | 2024-11-13 14:46 | ED.EYEPROB ---
HPI - Eye Problem General Chief complaint: Eye Problems Stated complaint: Fall / LT Eye Problems Related Data Home Medications ?Medication ?Instructions ?Recorded ?Confirmed ?Last Taken ?Type aspirin 81 mg tablet,delayed 81 mg PO DAILY 04/21/20 06/04/24 Unknown History release (Adult Aspirin Regimen) cholecalciferol (vitamin D3) 25 25 mcg PO DAILY 04/27/21 06/04/24 Unknown History mcg (1,000 unit) capsule vitamin E (dl, acetate) 180 mg 180 mg PO DAILY 04/27/21 06/04/24 Unknown History (400 unit) capsule calcium carbonate 1,200 mg PO .COMPLEX 05/14/24 06/04/24 Unknown History Allergies Allergy/AdvReac Type Severity Reaction Status Date / Time No Known Allergies Allergy Verified 06/04/24 08:02 [facility] Past Medical History Medical History Abnormal breast biopsy Left breast mass High cholesterol Cataract (lens) fragments in eye following cataract surgery, right eye Spontaneous Tubal Surgical History Surgical History History of gynecologic surgery endometria nckhsn-imlsicmuitxk-G&C-benign History of gynecologic surgery d&c - miscarriage H/O breast biopsy (07/12/22) left breast biopsy Benign History of tubal ligation Family History Family History Father Heart disease Mother Aneurysm of gastric artery Diabetes mellitus Heart disease Sibling Heart disease Social History Social History Smoking status: Never smoker Alcohol intake: never Substance use: never Substance use type: does not use Do You Feel Safe in your Home?: Yes Current Housing: Decline to Answer Concerned About Future Housing: Decline to Answer Difficulty Paying Gas/Electric Bills: Decline to Answer Difficulty Paying for Meds: Decline to Answer Currently Unemployed: Decline to Answer Education: Decline to Answer Difficulty w/ Childcare or Family Care: Decline to Answer Living arrangements: other Additional living arrangements comments: Occupation/Education: 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 Gender identity (if verbalized by the patient): Female Sexual Orientation (if Verbalized by the Patient): Straight or Heterosexual Discharge Plan Discharge Patient Language: Congolese Prescriptions: No Action aspirin [Adult Aspirin Regimen] 81 mg tablet,delayed release (DR/EC) 81 mg PO DAILY calcium carbonate 600 mg calcium (1,500 mg) tablet 1,200 mg PO .COMPLEX Rx Instructions: 1,200 mg orally T I W; cholecalciferol (vitamin D3) 25 mcg (1,000 unit) capsule 25 mcg PO DAILY vitamin E (dl, acetate) 180 mg (400 unit) capsule 180 mg PO DAILY rosuvastatin 10 mg tablet 10 mg PO DAILY Qty: 90 3RF ibandronate 150 mg tablet 150 mg PO MONTHLY Qty: 12 0RF Follow-up/Referrals: Harvey Cunha DO [Primary Care Provider] -
[2024-11-13 14:47] VITALS: BP 132/58; PULSE 68; RESP 16; TEMP 36.3; O2SAT 100
--- NOTE | 2024-11-13 15:11 | ED_ITS ---
HPI - Fall General Chief Complaint: Fall Stated Complaint: Fall / LT Eye Problems Time Seen by Provider: 11/13/24 15:02 Mode of arrival: ambulatory Limitations: no limitations History of Present Illness HPI Narrative: 69-year-old female presents with concern for fall. Reports this morning at 5:30 a.m. she was taking her dogs for a walk out of her camper when she tripped and fell onto concrete. She reports she has pain around her left eye and cheek, she has developed a black eye. She is denying headache, nausea, vomiting, vision changes, eye pain or drainage. She reports she took an ibuprofen. She does not take blood thinners. She is concern for a ?brain injury?. complaint: fall Related Data Home Medications ?Medication ?Instructions ?Recorded ?Confirmed ?Last Taken ?Type aspirin 81 mg tablet,delayed 81 mg PO DAILY 04/21/20 06/04/24 Unknown History release (Adult Aspirin Regimen) cholecalciferol (vitamin D3) 25 25 mcg PO DAILY 04/27/21 06/04/24 Unknown History mcg (1,000 unit) capsule vitamin E (dl, acetate) 180 mg 180 mg PO DAILY 04/27/21 06/04/24 Unknown History (400 unit) capsule calcium carbonate 1,200 mg PO .COMPLEX 05/14/24 06/04/24 Unknown History Allergies Allergy/AdvReac Type Severity Reaction Status Date / Time No Known Allergies Allergy Verified 11/13/24 14:49 Review of Systems Review of Systems: CONSTITUTIONAL: Denies malaise, chills, sweats, or fever. EYES: Denies visual changes, redness, or discharge. ENT: Denies rhinorrhea GASTROINTESTINAL: Denies nausea, vomiting SKIN: Reports bruising to the left eye and cheek MUSCULOSKELETAL: Denies back pain, or musculoskeletal pain NEUROLOGIC: Denies numbness, weakness, or headache. All systems reviewed & are unremarkable except as noted in HPI and below [facility] Past Medical History Medical History Abnormal breast biopsy Left breast mass High cholesterol Cataract (lens) fragments in eye following cataract surgery, right eye Spontaneous Tubal Surgical History Surgical History History of gynecologic surgery endometria qvvcle-jpswzrlwawvx-A&C-benign History of gynecologic surgery d&c - miscarriage H/O breast biopsy (07/12/22) left breast biopsy Benign History of tubal ligation Family History Family History Father Heart disease Mother Aneurysm of gastric artery Diabetes mellitus Heart disease Sibling Heart disease Social History Social History Smoking status: Never smoker Alcohol intake: never Substance use: never Substance use type: does not use Do You Feel Safe in your Home?: Yes Current Housing: Decline to Answer Concerned About Future Housing: Decline to Answer Difficulty Paying Gas/Electric Bills: Decline to Answer Difficulty Paying for Meds: Decline to Answer Currently Unemployed: Decline to Answer Education: Decline to Answer Difficulty w/ Childcare or Family Care: Decline to Answer Living arrangements: other Additional living arrangements comments: Occupation/Education: occupation 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 There is no relevant family history pertinent to the presenting complaint Exam Narrative: GENERAL: Well-appearing, well-nourished, and in no acute distress. HEAD: Normocephalic EYES: PERRLA, sclera clear, and EOMI. No nystagmus. ENT: Nares clear. Mucous membranes moist. TM pearly schumacher with sharp light reflex bilaterally; no tragal tenderness. Tenderness noted of the left cheek and forehead NECK: Supple. CHEST: No respiratory distress. Speaks in full sentences. HEART: Regular rate and rhythm. EXTREMITIES: Normal range of motion. No edema. Normal strength and sensation. SKIN: Warm, dry. Ecchymosis noted around the left eye, eyelid NEURO: Alert and oriented x3. No focal deficits. Cranial nerves II through XII grossly intact PSYCH: Normal mood and affect Course Course Emergency Course: Patient is aware of. understands and agrees to be transferred to the emergency room. Patient agrees to proceed directly to the emergency department. Portions of this record may have been created with voice recognition software Level of Care: Express Care Visit Vital Signs Vital signs: Vital Signs Temperature 97.4 F L 08/05/25 14:47 Pulse Rate 68 11/13/24 14:47 Respiratory Rate 16 11/13/24 14:47 Blood Pressure 132/58 L 11/13/24 14:47 Pulse Oximetry 100 11/13/24 14:47 Temperature 97.4 F L 11/13/24 14:47 Pulse Rate 68 11/13/24 14:47 Respiratory Rate 16 11/13/24 14:47 Blood Pressure 132/58 L 11/13/24 14:47 Pulse Oximetry 100 11/13/24 14:47 Reviewed. Transfer Transfered to: [place] Transportation: Other (Private vehicle) Transfer rationale: Head injury/face injury Accepting physician: [place] MDM - Fall MDM Narrative Medical decision making narrative: Patient is nontoxic appearing and in no acute distress Critical Care Time Critical Care Time Critical Care Time: No Discharge Plan Discharge Clinical Impression: Facial injury Patient Disposition: Acute Care Hospital Condition: Stable Patient Language: Lithuanian Prescriptions: No Action aspirin [Adult Aspirin Regimen] 81 mg tablet,delayed release (DR/EC) 81 mg PO DAILY calcium carbonate 600 mg calcium (1,500 mg) tablet 1,200 mg PO .COMPLEX Rx Instructions: 1,200 mg orally T I W; cholecalciferol (vitamin D3) 25 mcg (1,000 unit) capsule 25 mcg PO DAILY vitamin E (dl, acetate) 180 mg (400 unit) capsule 180 mg PO DAILY rosuvastatin 10 mg tablet 10 mg PO DAILY Qty: 90 3RF ibandronate 150 mg tablet 150 mg PO MONTHLY Qty: 12 0RF Follow-up/Referrals: Harvey Cunha DO [Primary Care Provider] - Time of Disposition: 15:20
== END 2024-11-13 15:14 | disposition short-term general hospital (02) ==
PROVIDERS: Emergency Provider Nurse Practitioner; PCP Internal Medicine
DX: S00.12XA Contusion of left eyelid and periocular area, initial encounter (principal); W01.0XXA Fall on same level from slipping, tripping and stumbling without subsequent striking against object, initial encounter; E78.00 Pure hypercholesterolemia, unspecified
CPT/HCPCS: 99212; G0463

== ENCOUNTER 2024-11-13 15:33 | Emergency (ER) | payer BC, SELFPAY ==
--- NOTE | ~2024-11-13 | CT_ITS ---
EXAMINATION: CT facial & cervical spine wo DATE: 11/13/2024 16:20 INDICATION: Status post fall. Head injury. TECHNIQUE: Computed tomography (CT) of the maxillofacial region and cervical spine was performed with out intravenous contrast. The dose-length product (DLP) was 605.33 mGy-cm. Automated exposure control and iterative reconstruction technique were employed. COMPARISON: None FINDINGS: MAXILLOFACIAL CT: There are displaced fractures anterior and lateral matias of the left maxillary sinus, inferior latera l wall of the left orbit. There is layering fluid in the left maxillary sinus, likely blood. Mastoids are pneumatized. No depressed skull fracture seen. Mandible intact. Pterygoid plates within normal l imits. Mild left periorbital soft tissue swelling. CERVICAL SPINE CT: Straightening of cervical lordosis. There is disc narrowing and endplate degenerative change at C4-5, C5-6 and C6-7. Craniovertebral junction is normal. Odontoid process within normal limits. Spinous pr ocesses are normal. No evidence for perched facet. There is uncinate and facet degenerative change of the mid and lower cervical spine. Mild levocurvature of the cervical spine. Lung apices are normal. No cervical lymphadenopathy. IMPRESSION: 1. Mildly displaced fractures inferior and lateral matias left orbit, lateral an anterior matias left m axillary sinus. 2: No acute abnormality of the cervical spine. Reviewed, dictated and finalized at location A. IMPRESSION: 1. Mildly displaced fractures inferior and lateral matias left orbit, lateral an anterior matias left maxillary sinus. 2: No acute abnormality of the cervical spine.
--- NOTE | ~2024-11-13 | CT_ITS ---
EXAMINATION: CT brain wo con DATE: 11/13/2024 16:20 INDICATION: Fall with head injury TECHNIQUE: Computed tomography (CT) of the head was performed without intravenous contrast. Sagittal and coronal reconstructions were performed. The mA was adjusted according to patient size. Iterative reconstruction technique was employed. The dose-length product was 605.33 mGy-cm. COMPARISON: None FINDINGS: No calvarial fracture. 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 No acute intracranial h emorrhage, acute infarction or abnormal extra axial fluid collection. Ventricles are normal and symme tric. No mass/mass effect. Changes of bilateral intraocular lens replacement. The orbits and mastoid air cells are normal. Layering blood in the left maxillary sinus. Non to minimally displaced fracture s seen along the lateral wall of the left maxillary sinus and along the inferior wall of the left orb it including along the left infraorbital canal along which is a small focus of gas. Additional fractu re with mild buckling of the bone along the lateral wall of the left orbit. IMPRESSION: 1. No calvarial fracture or acute intracranial process. 2. Minimally displaced fractures of the left inferior and lateral orbital matias and the lateral wall of the left maxillary sinus with layering blood in the left maxillary sinus. 3. 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 Reviewed, dictated and finalized at location A. IMPRESSION: 1. No calvarial fracture or acute intracranial process. 2. Minimally displaced fractures of the left inferior and lateral orbital matias and the lateral wall of the left maxillary sinus with layering blood in the le ft maxillary sinus. 3. 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
[2024-11-13 15:34] VITALS: BP 137/58; PULSE 73; RESP 16; TEMP 36.5; O2SAT 99
[2024-11-13 17:20] VITALS: BP 119/53; PULSE 70; RESP 20; O2SAT 100
--- OUTSIDE RECORDS SUMMARY | 2024-11-13 17:32 | XMS_ITS | Encounter Summary ---
Author Organization [facility] Healthcare Address [address] [place] [address] Care Team Providers Care Meteorology Instructor Name Role Phone Unavailable Primary Care Provider Unavailabl e Reason for Visit * Diagnostic Imaging (Routine) - Closed Specialty Diagnoses / Procedures Referred By Jamil t Referred To Contact Procedures Breast Imaging US Outside Reference Yvette Joshi NP Phone: tel: fax: Referral ID Status Reason Start Date Expiration Date Visits Re quested Visits Authorized [id number] Closed 06/18/2022 07/18/2023 1 1 Encounter Details Date Type Department Care Team (Late st Contact Info) Description 05/05/2020 Hospital Encounter [facility] [address] [place] [id number] Social History Tobacco Use Types Packs/Day Years Used Date Smoking Tobacco: Never Passive Smoke Exposure: Never Smokeless Tobacco: Never Personal Safety Answer Date Recorded Getting School Help Needed Not on file 05/23 Comments Unknown Sex and Gender Information Value Date Recorded Sex Assigned at Not on file Legal Sex Female 9:00 AM DISPATCH CLERK Gender Identity Not on file Sexual Orientation Not on file documented as of this encounter Plan of Treatment Not on file documented as of this encounter Procedures Procedure Name Priority Date/Time Associated Diagnosis Comments BREAST IMAGING US OUTSIDE REFERENCE Routine 05/05/2020 12:00 AM DISPATCH CLERK documented in this encounter Results * Breast Imaging US Outside Reference (05/05/2020 12:00 AM DISPATCH CLERK) Impressions RAD_MAMMO_[facility] - 06/18/2022 1:07 PM DISPATCH CLERK These images are for Reference purposes only and have not been reviewed by [facility] Radiology. There will be no report generated by a [facility] Radiologist. Narrative RAD_MAMMO_[facility] - 06/18/2022 1:07 PM DISPATCH CLERK EXAMINATION: Images For Reference Purposes Only us Yvette Joshi NP IMG MAMMO PROCEDURES Final Result [facility]MAMMO[facility] documented in this encounter Visit Diagnoses Not on filedocumented in this encounter
--- OUTSIDE RECORDS SUMMARY | 2024-11-13 17:32 | XMS_ITS | Encounter Summary ---
Author Organization [facility] Healthcare Address [address] [place] [address] Care Team Providers Care Sugar Plantation Manager Name Role Phone Unavailable Primary Care Provider Unavailabl e Reason for Visit * Diagnostic Imaging (Routine) - Closed Specialty Diagnoses / Procedures Referred By Jamil t Referred To Contact Procedures Breast Imaging Diagnostic Outside Reference Yvette Joshi NP Phone: tel: fax: Referral ID Status Reason Start Date Expiration Date Visits Re quested Visits Authorized [id number] Closed 06/18/2022 07/18/2023 1 1 Encounter Details Date Type Department Care Team (Late st Contact Info) Description 05/05/2020 12:05 AM OPEN HEARTH LABORER Hospital Encounter [facility] Radiology [facility] [address] [place] [id number] Social History Tobacco Use Types Packs/Day Years Used Date Smoking Tobacco: Never Passive Smoke Exposure: Never Smokeless Tobacco: Never Personal Safety Answer Date Recorded Getting School Help Needed Not on file 05/23 Comments Unknown Sex and Gender Information Value Date Recorded Sex Assigned at Not on file Legal Sex Female 9:00 AM OPEN HEARTH LABORER Gender Identity Not on file Sexual Orientation Not on file documented as of this encounter Plan of Treatment Not on file documented as of this encounter Procedures Procedure Name Priority Date/Time Associated Diagnosis Comments BREAST IMAGING MG DIAGNOSTIC OUTSIDE REFERENCE Routine 05/05/2020 12:05 AM OPEN HEARTH LABORER documented in this encounter Results * Breast Imaging Diagnostic Outside Reference (05/05/2020 12:05 AM OPEN HEARTH LABORER) Impressions RAD_MAMMO[facility] - 06/18/2022 1:07 PM OPEN HEARTH LABORER These images are for Reference purposes only and have not been reviewed by [facility] Radiology. There will be no report generated by a [facility] Radiologist. Narrative RAD_MAMMO_[facility] - 06/18/2022 1:07 PM OPEN HEARTH LABORER EXAMINATION: Images For Reference Purposes Only us Yvette Joshi NP IMG MAMMO PROCEDURES Final Result RAD_MAMMO[facility] documented in this encounter Visit Diagnoses Not on filedocumented in this encounter
--- OUTSIDE RECORDS SUMMARY | 2024-11-13 17:32 | XMS_ITS | Encounter Summary ---
Author Organization [facility] Healthcare Address [address] [place] [address] Care Team Providers Care On Site Nurse Name Role Phone Unavailable Primary Care Provider Unavailabl e Reason for Visit * Diagnostic Imaging (Routine) - Closed Specialty Diagnoses / Procedures Referred By Jamil t Referred To Contact Procedures Breast Imaging Screening Outside Reference Yvette Joshi NP Phone: tel: fax: Referral ID Status Reason Start Date Expiration Date Visits Re quested Visits Authorized [id number] Closed 06/18/2022 07/18/2023 1 1 Encounter Details Date Type Department Care Team (Late st Contact Info) Description 03/31/2020 Hospital Encounter [facility] [address] [place] [id number] Social History Tobacco Use Types Packs/Day Years Used Date Smoking Tobacco: Never Passive Smoke Exposure: Never Smokeless Tobacco: Never Personal Safety Answer Date Recorded Getting School Help Needed Not on file 05/23 Comments Unknown Sex and Gender Information Value Date Recorded Sex Assigned at Not on file Legal Sex Female 9:00 AM WATER QUALITY ANALYST Gender Identity Not on file Sexual Orientation Not on file documented as of this encounter Plan of Treatment Not on file documented as of this encounter Procedures Procedure Name Priority Date/Time Associated Diagnosis Comments BREAST IMAGING MG SCREENING OUTSIDE REFERENCE Routine 03/31/2020 12:00 AM WATER QUALITY ANALYST documented in this encounter Results * Breast Imaging Screening Outside Reference (03/31/2020 12:00 AM WATER QUALITY ANALYST) Impressions RAD_MAMMO_[facility] - 06/18/2022 1:07 PM WATER QUALITY ANALYST These images are for Reference purposes only and have not been reviewed by [facility] Radiology. There will be no report generated by a [facility] Radiologist. Narrative RAD_MAMMO_[facility] - 06/18/2022 1:07 PM WATER QUALITY ANALYST EXAMINATION: Images For Reference Purposes Only us Yvette Joshi NP IMG MAMMO PROCEDURES Final Result RAD_MAMMO[facility] documented in this encounter Visit Diagnoses Not on filedocumented in this encounter
--- OUTSIDE RECORDS SUMMARY | 2024-11-13 17:32 | XMS_ITS | Referral Summary ---
Author Organization [facility] Address [address] [place] [address] Care Team Providers Care Shower Maid Name Role Phone Stanton Mcdonough MD Unavailable [phone] Bob Vance Primary Care Provider Allergies No [...] on file Legal Sex Female 9:00 AM RADIO DIVISION CAPTAIN Gender Identity Not on file Sexual Orientation [...] to return to the Breast [facility] for biopsy on 07/12 at 7:45 [...] BOTH breasts was performed by a trained facility planner and by Wong. BREAST PARENCHYMAL COMPOSITION: The [...] BOTH breasts was performed by a trained facility planner and by Wong. BREAST PARENCHYMAL COMPOSITION: The [...] Most Recently Relevant to Health Maintenance Insurance Member Subscriber Plan / Payer (Ef fective 2011-Present) Name:Janine Mejia Relation to Subscriber:Self Name:MejiaJanine Payer ID:[id number] (NAIC) Type:[employer] HMO/PPO Address: [address] [address] [facility] Care Teams Shower Maid Relationship Specialty Start Date End Date Bob Vance PA [address] [address] PCP - General Physician Covered Buckle Assembler 06/07/22 Stanton Mcdonough MD [address] [place] [address] Referring Physician Obstetrics and Gynecology 05/31/22
--- OUTSIDE RECORDS SUMMARY | 2024-11-13 17:32 | XMS_ITS | Clinical Summary ---
Author Organization [facility] Address [address] [place] [address] Care Team Providers Care Boom Storage Name Role Phone Stanton Mcdonough MD Unavailable [phone] Bob Vance Primary Care Provider Allergies No [...] on file Legal Sex Female 9:00 AM NETWORK MGR Gender Identity Not on file Sexual Orientation [...] has been scheduled to return to the [facility] for biopsy on 07/12 at [...] BOTH breasts was performed by a trained waste machine tender and by Wong. BREAST PARENCHYMAL COMPOSITION: The [...] BOTH breasts was performed by a trained waste machine tender and by Wong. BREAST PARENCHYMAL COMPOSITION: The [...] been scheduled to return to the Breast [facility] for biopsy on 07/12 at 7:45 AM. This facility will contact the referring clinician's office for an order. Electronically signed by: Lindsey Back MD Yvette Joshi NP IMG MAMMO PROCEDURES Final Result from Last 3 Months or Most Recently Relevant to Health Maintenance Insurance LOCAL PLUS MEDICARE Care Teams Boom Storage Relationship Specialty Start Date End Date Bob Vance PA [address] [place] [address] PCP - General Physician Dye Can Operator 06/07/22 Stanton Mcdonough MD [address] [place] [address] Referring Physician Obstetrics and Gynecology 05/31/22
--- NOTE | 2024-11-13 18:43 | ED_ITS ---
HPI - General Adult General Chief complaint: Fall Stated complaint: fall, hit head Time Seen by Provider: 11/13/24 17:20 History of Present Illness HPI narrative: This is a 69-year-old female presenting after ground level fall. Patient was getting out of her camping trailer while holding a dog and tripped landing on the left side of her face. She denies loss of conscious. She denies use of blood thinners. She does have significant bruising sore eye. No eye pain. No visual changes. He does have some numbness on the left side of her face. Related Data Home Medications ?Medication ?Instructions ?Recorded ?Confirmed ?Last Taken ?Type aspirin 81 mg tablet,delayed 81 mg PO DAILY 04/21/20 06/04/24 Unknown History release (Adult Aspirin Regimen) cholecalciferol (vitamin D3) 25 25 mcg PO DAILY 04/27/21 06/04/24 Unknown History mcg (1,000 unit) capsule vitamin E (dl, acetate) 180 mg 180 mg PO DAILY 04/27/21 06/04/24 Unknown History (400 unit) capsule calcium carbonate 1,200 mg PO .COMPLEX 05/14/24 06/04/24 Unknown History Allergies Allergy/AdvReac Type Severity Reaction Status Date / Time No Known Allergies Allergy Verified 11/13/24 14:49 [facility] Past Medical History Medical History Abnormal breast biopsy Left breast mass High cholesterol Cataract (lens) fragments in eye following cataract surgery, right eye Spontaneous Tubal Surgical History Surgical History History of gynecologic surgery endometria wiaely-bkdfpafpscyi-K&C-benign History of gynecologic surgery d&c - miscarriage H/O breast biopsy (07/12/22) left breast biopsy Benign History of tubal ligation Family History Family History Father Heart disease Mother Aneurysm of gastric artery Diabetes mellitus Heart disease Sibling Heart disease Social History Social History Smoking status: Never smoker Alcohol intake: never Substance use: never Substance use type: does not use Do You Feel Safe in your Home?: Yes Current Housing: Decline to Answer Concerned About Future Housing: Decline to Answer Difficulty Paying Gas/Electric Bills: Decline to Answer Difficulty Paying for Meds: Decline to Answer Currently Unemployed: Decline to Answer Education: Decline to Answer Difficulty w/ Childcare or Family Care: Decline to Answer Living arrangements: other Additional living arrangements comments: Occupation/Education: occupation 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 Head: Decreased sensation light touch in the left infraorbital nerve distribution EYES: Extraocular movements intact, vision is 20/20 bilaterally, NOSE: Atraumatic NECK: Trachea midline RESPIRATORY: No increased rate of breathing CTAB CARDIOVASCULAR: RRR, ABDOMINAL: Non-distended MUSCULOSKELETAl: No obvious deformities NEURO: Alert. Cranial nerves 2-12 grossly intact. Sensation light touch, motor function cerebellar function intact for 4 extremities. Gait exam was normal. SKIN:: Warm, dry. Normal color PSYCHIATRIC: Normal affect Course Vital Signs Vital signs: Vital Signs Temperature 97.7 F 11/13/24 15:34 Pulse Rate 73 11/13/24 15:34 Respiratory Rate 16 11/13/24 15:34 Blood Pressure 137/58 L 11/13/24 15:34 Pulse Oximetry 99 11/13/24 15:34 Temperature 97.7 F 11/13/24 15:34 Pulse Rate 70 11/13/24 17:20 Respiratory Rate 20 11/13/24 17:20 Blood Pressure 119/53 L 11/13/24 17:20 Pulse Oximetry 100 11/13/24 17:20 Oxygen Delivery Room Air 11/13/24 17:20 Medical Decision Making [facility] Narrative Medical decision making narrative: -Course: 69-year-old female presenting after ground level fall. CT imaging showed a mildly displaced inferior orbital wall and lateral wall fracture. She has no evidence of entrapment or eye injury. She does have some numbness an infraorbital nerve distribution which is expected given her injury. Case was discussed with plastics who is covering face at [facility]. Patient will be discharged with no nose blowing, an open mouth sneezing and head of bed elevation. She is given follow-up with Ophthalmology. Given return precautions for visual changes or pain in her eye. -DDX includes but is not limited to: Eye injury, orbital wall fracture, intracranial hemorrhage Vital Signs Vital Signs: Vital Signs Temperature 97.7 F 11/13/24 15:34 Pulse Rate 73 11/13/24 15:34 Respiratory Rate 16 11/13/24 15:34 Blood Pressure 137/58 L 11/13/24 15:34 Pulse Oximetry 99 11/13/24 15:34 Temperature 97.7 F 11/13/24 15:34 Pulse Rate 70 11/13/24 17:20 Respiratory Rate 20 11/13/24 17:20 Blood Pressure 119/53 L 11/13/24 17:20 Pulse Oximetry 100 11/13/24 17:20 Oxygen Delivery Room Air 11/13/24 17:20 Discharge Plan Discharge Clinical Impression: Fracture of orbital wall Patient Disposition: Home Condition: Stable Instructions: Antibiotic Form, Facial Fracture (DC) Additional Instructions: You were seen in the emergency department after a fall. You have an inferior orbital wall and lateral wall orbital fracture. Please call your long term care phlebotomist 1st thing tomorrow morning to arrange follow-up within 24-48 hours. -please do not blow your nose -please sneeze with an open mouth -use nasal saline spray as needed for moisture If you develop pain in your eye or vision changes please return to emergency department for re-evaluation. Patient Language: Czech Prescriptions: No Action aspirin [Adult Aspirin Regimen] 81 mg tablet,delayed release (DR/EC) 81 mg PO DAILY calcium carbonate 600 mg calcium (1,500 mg) tablet 1,200 mg PO .COMPLEX Rx Instructions: 1,200 mg orally T I W; cholecalciferol (vitamin D3) 25 mcg (1,000 unit) capsule 25 mcg PO DAILY vitamin E (dl, acetate) 180 mg (400 unit) capsule 180 mg PO DAILY rosuvastatin 10 mg tablet 10 mg PO DAILY Qty: 90 3RF ibandronate 150 mg tablet 150 mg PO MONTHLY Qty: 12 0RF Follow-up/Referrals: Harvey Cunha DO [Primary Care Provider] -
== END 2024-11-13 19:11 | disposition home or self-care (01) ==
PROVIDERS: Emergency Provider Emergency Medicine; PCP Internal Medicine
DX: S02.122A Fracture of orbital roof, left side, initial encounter for closed fracture (principal); S02.842A Fracture of lateral orbital wall, left side, initial encounter for closed fracture; E78.00 Pure hypercholesterolemia, unspecified; H59.021 Cataract (lens) fragments in eye following cataract surgery, right eye; W01.0XXA Fall on same level from slipping, tripping and stumbling without subsequent striking against object, initial encounter
CPT/HCPCS: 70450; 70486; 72125; 99284

== ENCOUNTER 2025-01-02 04:50 | Emergency (ER) | payer BC, SELFPAY ==
--- OUTSIDE RECORDS SUMMARY | 2020-03-31 01:00 | XMS_ITS | Encounter Summary ---
Author Organization [facility] Healthcare Address [address] [place] [address] Care Team Providers Care Religion Professor Name Role Phone Unavailable Primary Care Provider Unavailabl e Reason for Visit * Diagnostic Imaging (Routine) - Closed Specialty Diagnoses / Procedures Referred By Jamil t Referred To Contact Procedures Breast Imaging Screening Outside Reference Yvette Joshi NP Phone: tel: fax: Referral ID Status Reason Start Date Expiration Date Visits Re quested Visits Authorized [id number] Closed 06/18/2022 07/18/2023 1 1 Encounter Details Date Type Department Care Team (Late st Contact Info) Description 03/31/2020 Hospital Encounter [facility] [address] [place] [id number] Social History Tobacco Use Types Packs/Day Years Used Date Smoking Tobacco: Never Passive Smoke Exposure: Never Smokeless Tobacco: Never Comments Unknown Sex and Gender Information Value Date Recorded Sex Assigned at Not on file Legal Sex Female 9:00 AM CASUALTY INSURANCE CLAIM ADJUSTER Gender Identity Not on file Sexual Orientation Not on file documented as of this encounter Plan of Treatment Not on file documented as of this encounter Procedures Procedure Name Priority Date/Time Associated Diagnosis Comments BREAST IMAGING MG SCREENING OUTSIDE REFERENCE Routine 03/31/2020 12:00 AM CASUALTY INSURANCE CLAIM ADJUSTER documented in this encounter Results * Breast Imaging Screening Outside Reference (03/31/2020 12:00 AM CASUALTY INSURANCE CLAIM ADJUSTER) Impressions [facility] - 06/18/2022 1:07 PM CASUALTY INSURANCE CLAIM ADJUSTER These images are for Reference purposes only and have not been reviewed by [facility]. There will be no report generated by a [facility] Radiologist. Narrative [facility] - 06/18/2022 1:07 PM CASUALTY INSURANCE CLAIM ADJUSTER EXAMINATION: Images For Reference Purposes Only us Yvette Joshi NP IMG MAMMO PROCEDURES Final Result [facility] documented in this encounter Visit Diagnoses Not on filedocumented in this encounter
--- OUTSIDE RECORDS SUMMARY | 2020-05-05 01:00 | XMS_ITS | Encounter Summary ---
Author Organization [facility] Healthcare Address [address] [place] [address] Care Team Providers Care Procurement Accountant Name Role Phone Unavailable Primary Care Provider Unavailabl e Reason for Visit * Diagnostic Imaging (Routine) - Closed Specialty Diagnoses / Procedures Referred By Contphu t Referred To Contact Procedures Breast Imaging US Outside Reference Yvette Joshi NP Phone: tel: fax: Referral ID Status Reason Start Date Expiration Date Visits Re quested Visits Authorized [id number] Closed 06/18/2022 07/18/2023 1 1 Encounter Details Date Type Department Care Team (Late st Contact Info) Description 05/05/2020 Hospital Encounter [facility] [address] [place] [id number] Social History Tobacco Use Types Packs/Day Years Used Date Smoking Tobacco: Never Passive Smoke Exposure: Never Smokeless Tobacco: Never Comments Unknown Sex and Gender Information Value Date Recorded Sex Assigned at Not on file Legal Sex Female 9:00 AM LOAN SUPERVISOR Gender Identity Not on file Sexual Orientation Not on file documented as of this encounter Plan of Treatment Not on file documented as of this encounter Procedures Procedure Name Priority Date/Time Associated Diagnosis Comments BREAST IMAGING US OUTSIDE REFERENCE Routine 05/05/2020 12:00 AM LOAN SUPERVISOR documented in this encounter Results * Breast Imaging US Outside Reference (05/05/2020 12:00 AM LOAN SUPERVISOR) Impressions [facility] - 06/18/2022 1:07 PM LOAN SUPERVISOR These images are for Reference purposes only and have not been reviewed by [facility] Radiology. There will be no report generated by a [facility] Radiologist. Narrative [facility] - 06/18/2022 1:07 PM LOAN SUPERVISOR EXAMINATION: Images For Reference Purposes Only us Yvette Joshi NP IMG MAMMO PROCEDURES Final Result [facility] documented in this encounter Visit Diagnoses Not on filedocumented in this encounter
--- OUTSIDE RECORDS SUMMARY | 2020-05-05 01:05 | XMS_ITS | Encounter Summary ---
Author Organization [facility] Healthcare Address [address] [place] [address] Care Team Providers Care Ribbon Cutter Name Role Phone Unavailable Primary Care Provider Unavailabl e Reason for Visit * Diagnostic Imaging (Routine) - Closed Specialty Diagnoses / Procedures Referred By Contphu t Referred To Contact Procedures Breast Imaging Diagnostic Outside Reference Yvette Joshi NP Phone: tel: fax: Referral ID Status Reason Start Date Expiration Date Visits Re quested Visits Authorized [id number] Closed 06/18/2022 07/18/2023 1 1 Encounter Details Date Type Department Care Team (Late st Contact Info) Description 05/05/2020 12:05 AM USER ACCEPTANCE TESTER Hospital Encounter [facility] [address] [place] [id number] Social History Tobacco Use Types Packs/Day Years Used Date Smoking Tobacco: Never Passive Smoke Exposure: Never Smokeless Tobacco: Never Comments Unknown Sex and Gender Information Value Date Recorded Sex Assigned at Not on file Legal Sex Female 9:00 AM USER ACCEPTANCE TESTER Gender Identity Not on file Sexual Orientation Not on file documented as of this encounter Plan of Treatment Not on file documented as of this encounter Procedures Procedure Name Priority Date/Time Associated Diagnosis Comments BREAST IMAGING MG DIAGNOSTIC OUTSIDE REFERENCE Routine 05/05/2020 12:05 AM USER ACCEPTANCE TESTER documented in this encounter Results * Breast Imaging Diagnostic Outside Reference (05/05/2020 12:05 AM USER ACCEPTANCE TESTER) Impressions [facility] - 06/18/2022 1:07 PM USER ACCEPTANCE TESTER These images are for Reference purposes only and have not been reviewed by [facility]. There will be no report generated by a [facility] Radiologist. Narrative [facility] - 06/18/2022 1:07 PM USER ACCEPTANCE TESTER EXAMINATION: Images For Reference Purposes Only us Yvette Joshi NP IMG MAMMO PROCEDURES Final Result [facility] documented in this encounter Visit Diagnoses Not on filedocumented in this encounter
--- NOTE | ~2025-01-02 | CT_ITS ---
CT ABDOMEN AND PELVIS WITHOUT CONTRAST Clinical History: kidney stone Comparison: None Technique: Unenhanced axial images lung bases to symphysis pubis Coronal, sagittal reformats CT images acquired with automatic exposure control for dose reduction DLP: 222 mGy-cm Findings: Without intravenous contrast, sensitivity for detecting visceral parenchymal abnormalities decreased. Lung bases: Emphysema. Visualized heart and pericardium: Unremarkable. Liver: Enlarged. Gallbladder: Unremarkable. Spleen: Unremarkable. Pancreas: Unremarkable. Adrenal glands: Unremarkable. Kidneys: Right kidney- No hydronephrosis. Tiny stones. Left kidney- No hydronephrosis. Tiny stone. Distal esophagus/stomach: Unremarkable. Small bowel loops: Normal caliber and wall thickness. Colon: Diffuse distal wall thickening but under distended. Normal RLQ appendix. Nodes: No enlarged nodes. Peritoneum: No ascites. No free intraperitoneal air. Urinary bladder: Unremarkable. Uterus: Unremarkable. Adnexa: No masses. Bones: No acute bony abnormality. Soft tissues: Unremarkable. Unopacified abdominal aorta: No aneurysmal dilatation. IMPRESSION: 1. Small bilateral nephrolithiasis. No hydronephrosis. 2. Colitis not excluded. Reviewed, dictated and finalized at location R.
[2025-01-02 05:15] VITALS: BP 114/51; PULSE 69; RESP 18; TEMP 36.7; O2SAT 99
[2025-01-02 05:19] LABS: Hematocrit 40.9 % (37.0-47.0); Hemoglobin 13.4 g/dL (12.0-15.0); Immature Granulocyte Percent A 0.5 % (0-0.5); Lymphocytes Absolute Auto 1.37 K/mm3 (0.9-3.2); Mean Corpuscular HGB Conc 32.8 g/dl (32-36); Mean Corpuscular Hemoglobin 29.1 pg (26-34); Mean Corpuscular Volume 88.9 fl (80-100); Nucleated Red Blood Cells Absolute Auto 0.000 K/mm3 (0.0-0.012); Nucleated Red Blood Cells Perc 0.0 % (0.0-0.2); Platelet Count Result 248 k/mm3 (150-375); Red Blood Count 4.60 M/mm3 (4.2-5.4); White Blood Count 9.4 K/mm3 (4.5-10.0)
--- NOTE | 2025-01-02 05:21 | PC.NURSE ---
ERP verbalized orders for CT without contrast, 4mg of morphine and 4mg of zofran. This RN placed orders per ERP.
--- NOTE | 2025-01-02 05:23 | PC.NURSE ---
1L NS verbally ordered per ERP. This RN ordered.
[2025-01-02] MEDS: SODIUM CHLORIDE 0.9% IV 1,000 ML 999 ML IV CONT (05:27)
[2025-01-02] MEDS: ONDANSETRON INJ 4 MG/2 ML VIAL IV PUSH (05:27)
[2025-01-02] MEDS: MORPHINE SULFATE (*CRX) 4 MG/ML INJ IV PUSH (05:27)
[2025-01-02 05:33] LABS: Alanine Aminotransferase 16 U/L (6-35); Albumin Level 4.3 g/dL (3.5-5.1); Alkaline Phosphatase 77 U/L (38-126); Anion Gap 7 mmol/L (4-12); Aspartate Amino Transferase 26 U/L (14-36); Bilirubin,Total 0.4 mg/dL (0.2-1.3); Blood Urea Nitrogen 20 mg/dL (7-17); Calcium 8.9 mg/dL (8.4-10.2); Carbon Dioxide 24 mmol/L (22-30); Chloride 107 mmol/L (98-107); Estimated Glomerular Filt Rate 60; Glucose 131 mg/dL (65-110); Potassium 4.1 mmol/L (3.4-5.0); Sodium 138 mmol/L (137-145); Total Protein 7.3 g/dL (6.3-8.2)
[2025-01-02 06:49] VITALS: BP 132/74; PULSE 59; RESP 18; O2SAT 100
[2025-01-02 07:02] LABS: Add Urine Microscopic? YES; Appearance Urine Cloudy (Clear); Glucose Urine UA Negative (Negative); Leukocyte Esterase Ur 2+ LEU/UL (Negative); Need Manual Microscopic Reviewed; Nitrate Urine Negative (Negative); Non Pathogenic Casts 0-2; Specific Grav Ur 1.021 (1.001-1.035)
[2025-01-02 07:37] VITALS: BP 108/55; PULSE 59; RESP 14; O2SAT 100
--- OUTSIDE RECORDS SUMMARY | 2025-01-02 07:43 | XMS_ITS | Clinical Summary ---
Author Organization [facility] Address [address] [place] [address] Care Team Providers Care Senior Stock Plan Administrator Name Role Phone Stanton Mcdonough MD Unavailable [phone] Harvey Cunha DO Primary Care Provider [phone] Yahir Lucreo OD Unavailable [phone] Allergies No known active allergies Medications ibandronate [...] 200 unit tablet Take by mouth Active acetaminophen (TYLENOL) 500 mg tablet Take 1 tablet (500 mg total) by mouth every 6 (six) hours as needed for pain Active Active Problems Patient Care Coordination No te Formatting of this note migh t be different from the original. Pinky Problem Noted Date Diagnosed Date Orbital fracture, open, initial encounter 2024 Assessment & Plan (11/14/2024 12:58 PM CDT): As directed by referring office, avoid sneezing and nose blowing. Keep head up while sleeping and use cold compresses to reduce swelling. Attempted a referral to [facility] but she left stating that she didn't have time. Mass of left breast 01/03/2023 Mass of right breast 06/28/2010 Encounters Date Type Department Care Team Description 11/26/2024 8:15 AM CDT Office Visit [facility] Medicine Ophthalmology [address] [facility] [address] [place] [id number] Howard, Chris Singh MD Closed tripod fracture of zygomaticomaxillary complex, initial encounter (HCC) (Primary Dx) 11/14/2024 10:15 AM CDT Office Visit [facility] Ophthalmology [facility] [facility] [place] [id number] Skyler Rosas, OD Orbital fracture, open, initial encounter (HCC) (Primary Dx) 11/14/[address] [facility] Ophthalmology [facility] [place] [address] Skyler Rosas, SONAM same day appt from Last 3 Months Surgical History Surgery Date Site/Laterality Comments BREAST BIOPSY BREAST BIOPSY 07/12/2022 Left CATARACT EXTRACTION 04/11/2021 - 04/10/2022 Bilateral Family History Medical History Relation Name Comments No Known Problems Mother Diabetes Neg Hx Glaucoma Neg Hx Macular degeneration Neg Hx Thyroid disease Neg Hx Relation Name Status Comments Mother Social History Tobacco Use Types Packs/Day Years Used Date Smoking Tobacco: Never Passive Smoke Exposure: Never Smokeless Tobacco: Never Tobacco Cessation:Counseling Given: No Comments Unknown Sex and Gender Information Value Date Recorded Sex Assigned at Not on file Legal Sex 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 This facility will contact the referring clinician's office for an order. Electronically signed by: Lindsey Back MD Narrative 06/23/2022 2:42 PM CDT EXAMINATION: BILATERAL DIGITAL [...] BOTH breasts was performed by a trained professional golf tournament player and by Wong. BREAST PARENCHYMAL COMPOSITION: The [...] BOTH breasts was performed by a trained professional golf tournament player and by Wong. BREAST PARENCHYMAL COMPOSITION: The [...] been scheduled to return to the [facility] for biopsy on 07/12 at 7:45 AM. This facility will contact the referring clinician's office for an order. Electronically signed by: Lindsey Back MD Jasbirconstantino Rain Joshi NP IMG MAMMO PROCEDURES Final Result from Last 3 Months or Most Recently Relevant to Health Maintenance Insurance [facility] MEDICARE Care Teams Senior Stock Plan Administrator Relationship Specialty Start Date End Date Harvey Cunha DO [address] [place] [address] PCP - General Internal Medicine 11/14/24 Stanton Mcdonough MD [address] [place] [address] Referring Physician Obstetrics and Gynecology 05/31/22 Yahir Lucero OD [address] [place] [address] Optometry 11/26/24
--- NOTE | 2025-01-02 08:59 | ED.GENADULT ---
HPI - General Adult General Chief complaint: Urogenital-Female Stated complaint: flank pain Time Seen by Provider: 01/02/25 07:02 Source: patient Mode of arrival: ambulatory Limitations: no limitations History of Present Illness HPI narrative: 69-year-old with a history of hyper lipidemia here with a complains of left flank pain on and off for past few days pain got worse in the middle of the night. She denies any fever or chills. Patient states that she had similar pain with dark color urine few weeks ago which resolved by drinking cranberry juice. She denies any fever or chills. Onset (ago): day(s) (1) Location: abdomen (Left flank) Severity: moderate Quality: aching Pain Consistency: constant Relieving factors: none Exacerbating factors: none Associated symptoms: denies other symptoms Related Data Home Medications ?Medication ?Instructions ?Recorded ?Confirmed ?Last Taken ?Type aspirin 81 mg tablet,delayed 81 mg PO DAILY 04/21/20 11/19/24 Unknown History release (Adult Aspirin Regimen) cholecalciferol (vitamin D3) 25 25 mcg PO DAILY 04/27/21 11/19/24 Unknown History mcg (1,000 unit) capsule vitamin E (dl, acetate) 180 mg 180 mg PO DAILY 04/27/21 11/19/24 Unknown History (400 unit) capsule calcium carbonate 1,200 mg PO .COMPLEX 05/14/24 11/19/24 Unknown History Allergies Allergy/AdvReac Type Severity Reaction Status Date / Time No Known Allergies Allergy Verified 01/02/25 05:18 Review of Systems Review of Systems: All systems reviewed & are unremarkable except as noted in HPI and below Constitutional: Constitutional: Reports no additional constitutional complaints Eyes: Eyes: Reports no additional eye complaints ENT: Reports system reviewed and no additional complaints, except as documented Cardiovascular: Cardiovascular: Reports no additional cardiovascular complaints Respiratory: Respiratory: Reports no additional respiratory complaints Gastrointestinal: Gastrointestinal: Reports as per HPI Genitourinary: Genitourinary: Reports as per HPI Musculoskeletal: Musculoskeletal: Reports no additional musculoskeletal complaints Integumentary/Breasts: Skin/Breast: Reports system reviewed and no additional complaints, except as docu PMFSH Past Medical History Medical History Abnormal breast biopsy Left breast mass High cholesterol Cataract (lens) fragments in eye following cataract surgery, right eye Spontaneous Tubal Surgical History Surgical History History of gynecologic surgery endometria elkkra-[id number]-O&C-benign History of gynecologic surgery d&c - miscarriage H/O breast biopsy (07/12/22) left breast biopsy Benign History of tubal ligation Family History Family History Father Heart disease Mother Aneurysm of gastric artery Diabetes mellitus Heart disease Sibling Heart disease Social History Social History Smoking status: Never smoker Alcohol intake: never Substance use: never Substance use type: does not use Do You Feel Safe in your Home?: Yes Current Housing: Decline to Answer Concerned About Future Housing: Decline to Answer Difficulty Paying Gas/Electric Bills: Decline to Answer Difficulty Paying for Meds: Decline to Answer Currently Unemployed: Decline to Answer Education: Decline to Answer Difficulty w/ Childcare or Family Care: Decline to Answer Living arrangements: other Additional living arrangements comments: Occupation/Education: occupation 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 HEAD: Normocephalic, atraumatic. EYES: PERRLA and EOMI. ENT: Nares clear, no rhinorrhea or epistaxis. Mucous membranes moist. NECK: Supple. CHEST: Clear to auscultation. No respiratory distress. HEART: Regular rate and rhythm. No murmur heard. Normal peripheral pulses. ABDOMEN: Soft, nontender, nondistended, normal active bowel sounds. EXTREMITIES: Normal range of motion. No edema. SKIN: Warm, dry, no rash. NEURO: No focal deficits. Alert and oriented x3. PSYCH: Normal mood and affect. Course Course Emergency Course: Pain is much improved after IV morphine. I did inform her about the lab work, CT findings. Few RBC noted in the UA might have passed a stone. Which is not obvious on the CT scan. Advised her to drink more fluids take medication as prescribed for pain. Follow-up with the primary doctor. Vital Signs Vital signs: Vital Signs Temperature 36.7 C 01/02/25 05:15 Pulse Rate 69 01/02/25 05:15 Respiratory Rate 18 01/02/25 05:15 Blood Pressure 114/51 L 01/02/25 05:15 Pulse Oximetry 99 01/02/25 05:15 Oxygen Delivery Room Air 01/02/25 05:15 Temperature 36.7 C 01/02/25 05:15 Pulse Rate 59 L 01/02/25 07:37 Respiratory Rate 14 01/02/25 07:37 Blood Pressure 108/55 L 01/02/25 07:37 Pulse Oximetry 100 01/02/25 07:37 Oxygen Delivery Room Air 01/02/25 07:37 Medical Decision Making Differential Diagnosis Differential Diagnosis: UTI, pyelonephritis, ureteral stone, back pain Vital Signs Vital Signs: Vital Signs Temperature 36.7 C 01/02/25 05:15 Pulse Rate 69 01/02/25 05:15 Respiratory Rate 18 01/02/25 05:15 Blood Pressure 114/51 L 01/02/25 05:15 Pulse Oximetry 99 01/02/25 05:15 Oxygen Delivery Room Air 01/02/25 05:15 Temperature 36.7 C 01/02/25 05:15 Pulse Rate 59 L 01/02/25 07:37 Respiratory Rate 14 01/02/25 07:37 Blood Pressure 108/55 L 01/02/25 07:37 Pulse Oximetry 100 01/02/25 07:37 Oxygen Delivery Room Air 01/02/25 07:37 Lab Data Lab results reviewed: Yes I reviewed the patient's lab results. 01/02/25 05:13 01/02/25 05:13 Labs: Lab Results 01/02/25 01/02/25 Range/Units 05:13 06:42 WBC 9.4 (4.5-10.0) K/mm3 RBC 4.60 (4.2-5.4) M/mm3 Hgb 13.4 (12.0-15.0) g/dL Hct 40.9 (37.0-47.0) % MCV 88.9 (80-100) fl MCH 29.1 (26-34) pg MCHC 32.8 (32-36) g/dl RDW 13.1 (11.5-14.5) % Plt Count 248 (150-375) k/mm3 MPV 11.1 H (7.4-10.4) fl Immature Gran % (Auto) 0.5 (0-0.5) % Neut % (Auto) 77.4 H (45.5-73.1) % Lymph % (Auto) 14.6 L (18.3-44.2) % [place] % (Auto) 6.5 (2.6-8.5) % Eos % (Auto) 0.4 (0-4.4) % Baso % (Auto) 0.6 (0.2-1.2) % Lymph # (Auto) 1.37 (0.9-3.2) K/mm3 [place] # (Auto) 0.6 (0.1-0.6) K/mm3 Eos # (Auto) 0.0 (0-0.3) K/mm3 Baso # (Auto) 0.1 (0.0-0.1) K/mm3 Abs Immat Gran (auto) 0.05 H (0.00-0.031) K/mm3 Absolute Neuts (auto) 7.3 H (1.3-6.7) K/mm3 Absolute Nucleated RBC 0.000 (0.0-0.012) K/mm3 Nucleated RBC % 0.0 (0.0-0.2) % Sodium 138 (137-145) mmol/L Potassium 4.1 (3.4-5.0) mmol/L Chloride 107 (98-107) mmol/L Carbon Dioxide 24 (22-30) mmol/L Anion Gap 7 (4-12) mmol/L BUN 20 H (7-17) mg/dL Creatinine 0.93 (0.7-1.0) mg/dL Estim Creat Clear Calc Not Reportable Estimated GFR 60 (59 - ) Glucose 131 H (65-110) mg/dL Calcium 8.9 (8.4-10.2) mg/dL Total Bilirubin 0.4 (0.2-1.3) mg/dL AST 26 (14-36) U/L ALT 16 (6-35) U/L Alkaline Phosphatase 77 (38-126) U/L Total Protein 7.3 (6.3-8.2) g/dL Albumin 4.3 (3.5-5.1) g/dL Urine Color Yellow (Yellow) Urine Appearance Cloudy H (Clear) Urine pH 6.5 (5.0-9.0) Ur Specific [place] 1.021 (1.001-1.035) Urine Protein Negative (Negative) mg/dL Urine Glucose (UA) Negative (Negative) mg/dL Urine Ketones Negative (Negative) mg/dL Ur Blood (Man) 2+ H (Negative) Urine Nitrate Negative (Negative) Urine Bilirubin Negative (Negative) Urine Urobilinogen 0.2 (<2.0) mg/dL Add Ur Microanalysis Reviewed Leukocyte Esterase Rfl 2+ H (Negative) CORTNEY/UL Urine RBC 21-50 H (0-2) /hpf Urine WBC 0-5 (0-3) /hpf Ur Squamous Epith Cells Occasional (Few) /hpf Urine Bacteria None seen /hpf Urine Casts 0-2 Imaging Data Radiologist's impression: ITS Impressions Abdomen/Pelvis CT 01/02/25 08:10 IMPRESSION: 1. Small bilateral nephrolithiasis. No hydronephrosis. 2. Colitis not excluded. Discharge Plan Discharge Clinical Impression: Left flank pain, Bilateral nephrolithiasis Patient Disposition: Home Condition: Stable Instructions: Kidney Stones (ED) Additional Instructions: Drink more fluids take pain medication as prescribed Patient Language: Iraqi Prescriptions: New hydrocodone-acetaminophen 5-325 mg tablet 1 tablet PO Q8H PRN (Reason: pain) Qty: 10 0RF No Action aspirin [Adult Aspirin Regimen] 81 mg tablet,delayed release (DR/EC) 81 mg PO DAILY calcium carbonate 600 mg calcium (1,500 mg) tablet 1,200 mg PO .COMPLEX Rx Instructions: 1,200 mg orally T I W; cholecalciferol (vitamin D3) 25 mcg (1,000 unit) capsule 25 mcg PO DAILY vitamin E (dl, acetate) 180 mg (400 unit) capsule 180 mg PO DAILY rosuvastatin 10 mg tablet 10 mg PO DAILY Qty: 90 3RF ibandronate 150 mg tablet 150 mg PO MONTHLY Qty: 12 0RF Follow-up/Referrals: Harvey Cunha DO [Primary Care Provider, Internal Medicine] Time of Disposition: 09:04
[2025-01-02 09:52] VITALS: BP 101/54; PULSE 61; RESP 18; O2SAT 99
== END 2025-01-02 09:54 | disposition home or self-care (01) ==
PROVIDERS: Student in an Organized Health Care Education/Training Program; Emergency Provider Family Medicine; PCP Internal Medicine
DX: N20.0 Calculus of kidney (principal); E78.00 Pure hypercholesterolemia, unspecified; R10.9 Unspecified abdominal pain; Z79.82 Long term (current) use of aspirin; Z79.899 Other long term (current) drug therapy; R93.3 Abnormal findings on diagnostic imaging of other parts of digestive tract
CPT/HCPCS: 36415; 74176; 80053; 81001; 85025; 87086; 96361; 96374; 96375; 99284; J2270; J2405; J7030